=== PATIENT | female | born 1965 | race African-American/Black ===

== ENCOUNTER → 2017-03-18 | Outpatient (CLI) | payer MEDICARE ==
[~2017-03-18] MED LIST: ABILIFY PO; AMANTADINE HCL100 MG PO; GEODAN PO; SEROQUEL PO
[2017-03-18 16:23] LABS: BUN/CREATININE RATIO 6.66; CALCIUM SERUM 9.5 mg/dL (8.4-10.2); CREATININE SERUM 1.5 mg/dL (0.6-1.4)
== END | disposition home or self-care (01) ==
LOC: CLAB 15:38
PROVIDERS: Internal Medicine Nephrology
DX: N18.3 Chronic kidney disease, stage 3 (moderate) (principal)
CPT/HCPCS: 36415; 80048